=== PATIENT | male | born 1925 | race Caucasian/White ===

== ENCOUNTER 2016-10-12 12:33 | Inpatient (IN) | payer MEDICARE ==
[~2016-10-12] VITALS: Ht 167.6 cm; Wt 60.6 kg
[2016-10-12] MEDS ORDERED: SODIUM CHLORIDE 0.9% 1,000 ML ONE (14:38)
[2016-10-12] MEDS ORDERED: VANCOMYCIN 1,500 MG in SODIUM CHLORIDE 0.9% 250 ML IV ONE (16:20)
[2016-10-12] MEDS ORDERED: PIPERACIL/TAZO 4.5GM/100ML 100 ML IV ONE (16:20)
[2016-10-12] MEDS ORDERED: ONDANSETRON 4 MG VIAL IV PRN (16:40)
[2016-10-12] MEDS ORDERED: SALINE FLUSH 10 ML FLUSH PRN (16:40)
[2016-10-12] MEDS ORDERED: PHARMACY TO DOSE CEFEPIME IV SCH (16:40)
[2016-10-12] MEDS ORDERED: MAG HYDROX 30 ML UDC PO PRN (16:40)
[2016-10-12] MEDS ORDERED: ACETAMINOPHEN 325 MG TAB PO PRN (16:40)
[2016-10-12] MEDS ORDERED: BISACODYL 10 MG SUPP RECTAL PRN (16:40)
[2016-10-12] MEDS: ENOXAPARIN 40 MG/0.4 ML SYR SUBQ SCH (16:40)
[2016-10-12] MEDS ORDERED: PHARMACY TO DOSE VANCOMYCIN IV SCH (16:40)
[2016-10-12] MEDS: NAMENDA PO SCH (17:20)
[2016-10-12 19:38] VITALS: BP_SYST 150; RESP 20; TEMP 98.2; Ht 167.6 cm; Wt 60.6 kg
[2016-10-12] MEDS: SALINE FLUSH 10 ML FLUSH SCH (20:00)
[2016-10-12] MEDS: MEMANTINE XX SCH (20:00)
[2016-10-12] MEDS: [UNRECOGNIZED DRUG - OTHER] XX SCH (20:00)
[2016-10-12] MEDS: TAMSULOSIN 0.4 MG CAP PO SCH (20:16)
[2016-10-12] MEDS: FOLIC ACID 1 MG TAB PO SCH (20:16)
[2016-10-12] MEDS: NEB-BUDESONIDE 0.5 MG INH SCH (22:36)
[2016-10-12] MEDS: NEB-BROVANA 15 MCG/2 ML INH SCH (22:36)
[2016-10-12] MEDS: DUONEB INH SCH (22:36)
[2016-10-12 22:37] VITALS: RESP 18
[2016-10-12] MEDS: CEFEPIME 2000 MG/100 ML D5W 100 ML IV SCH (23:05)
[2016-10-12] MEDS: SODIUM CHLORIDE 0.9% 1,000 ML IV SCH (23:05)
[2016-10-12] MEDS: SODIUM CHLORIDE 0.9% FLUSH BAG 500 ML IV SCH (23:13)
[2016-10-12 23:38] VITALS: BP_SYST 100; RESP 20; TEMP 97.2
[2016-10-13] VITALS (8 sets, daily range): BP systolic 90–114; RESP 16–20; TEMP 97.3–98.3
[2016-10-13] MEDS: NEB-BROVANA 15 MCG/2 ML INH SCH ×2 (06:33→18:22)
[2016-10-13] MEDS: NEB-BUDESONIDE 0.5 MG INH SCH ×2 (06:33→18:22)
[2016-10-13] MEDS: DUONEB INH SCH ×3 (06:33→18:22)
[2016-10-13] MEDS: SALINE FLUSH 10 ML FLUSH SCH ×2 (08:00→20:22)
[2016-10-13] MEDS: [UNRECOGNIZED DRUG - OTHER] XX SCH ×2 (08:00→20:00)
[2016-10-13] MEDS: MEMANTINE XX SCH ×2 (08:00→20:00)
[2016-10-13] MEDS: SODIUM CHLORIDE 0.9% 1,000 ML IV SCH (08:23)
[2016-10-13] MEDS ORDERED: MISSING DOSE XX ONE ×2 (08:25→09:20)
[2016-10-13] MEDS: NAMENDA PO SCH (09:00)
[2016-10-13] MEDS: CEFEPIME 2000 MG/100 ML D5W 100 ML IV SCH ×2 (09:43→20:22)
[2016-10-13] MEDS: FOLIC ACID 1 MG TAB PO SCH (09:44)
[2016-10-13] MEDS: TAMSULOSIN 0.4 MG CAP PO SCH (09:44)
[2016-10-13] MEDS: LEVOTHYROXINE 0.175 MG TAB PO SCH (09:44)
[2016-10-13] MEDS: ENOXAPARIN 40 MG/0.4 ML SYR SUBQ SCH (09:45)
[2016-10-13] MEDS ORDERED: MAGNEVIST 15ML IV ONE (11:46)
[2016-10-13] MEDS: DAKIN'S 0.125% 480 ML TOPICAL SCH ×2 (13:05→20:23)
[2016-10-13] MEDS ORDERED: SODIUM CHLORIDE 0.9% 1,000 ML IV SCH (18:30)
[2016-10-13] MEDS: VANCOMYCIN 1,000 MG in SODIUM CHLORIDE 0.9% 250 ML IV SCH (18:32)
[2016-10-14] VITALS (12 sets, daily range): BP systolic 90–115; RESP 16–20; TEMP 97.3–98.5
[2016-10-14] MEDS: SODIUM CHLORIDE 0.9% FLUSH BAG 500 ML IV SCH ×2 (04:54→19:27)
[2016-10-14] MEDS: NEB-BROVANA 15 MCG/2 ML INH SCH ×2 (06:49→19:49)
[2016-10-14] MEDS: NEB-BUDESONIDE 0.5 MG INH SCH ×2 (06:49→19:49)
[2016-10-14] MEDS: DUONEB INH SCH ×3 (06:49→19:49)
[2016-10-14] MEDS: LEVOTHYROXINE 0.175 MG TAB PO SCH (06:51)
[2016-10-14] MEDS: CEFEPIME 2000 MG/100 ML D5W 100 ML IV SCH ×2 (08:10→22:06)
[2016-10-14] MEDS: SALINE FLUSH 10 ML FLUSH SCH ×2 (08:10→20:00)
[2016-10-14] MEDS: FOLIC ACID 1 MG TAB PO SCH (08:11)
[2016-10-14] MEDS: TAMSULOSIN 0.4 MG CAP PO SCH (08:11)
[2016-10-14] MEDS: ENOXAPARIN 40 MG/0.4 ML SYR SUBQ SCH (08:12)
[2016-10-14] MEDS ORDERED: *PINK BRACELET XX ONE (10:50)
[2016-10-14] MEDS: NAMENDA PO SCH (10:51)
[2016-10-14] MEDS: DAKIN'S 0.125% 480 ML TOPICAL SCH (14:48)
[2016-10-14] MEDS: VANCOMYCIN 1,000 MG in SODIUM CHLORIDE 0.9% 250 ML IV SCH (19:27)
[2016-10-14] MEDS: *HOME MEDS IN MED CART XX SCH (20:00)
[2016-10-15] MEDS: DAKIN'S 0.125% 480 ML TOPICAL SCH ×3 (00:03→21:54)
[2016-10-15 03:28] VITALS: BP_SYST 105; RESP 20; TEMP 98.1
[2016-10-15] MEDS: LEVOTHYROXINE 0.175 MG TAB PO SCH (05:55)
[2016-10-15] MEDS: SODIUM CHLORIDE 0.9% FLUSH BAG 500 ML IV SCH (05:55)
[2016-10-15] MEDS: NEB-BUDESONIDE 0.5 MG INH SCH ×2 (06:16→18:11)
[2016-10-15] MEDS: DUONEB INH SCH ×3 (06:16→18:11)
[2016-10-15] MEDS: NEB-BROVANA 15 MCG/2 ML INH SCH ×2 (06:16→18:11)
[2016-10-15 07:18] VITALS: BP_SYST 107; RESP 20; TEMP 98.7
[2016-10-15] MEDS ORDERED: KCL 20 MEQ/15 ML UDC PO ONE (08:45)
[2016-10-15] MEDS: SALINE FLUSH 10 ML FLUSH SCH ×2 (09:20→21:53)
[2016-10-15] MEDS: CEFEPIME 2000 MG/100 ML D5W 100 ML IV SCH (09:21)
[2016-10-15] MEDS: NAMENDA PO SCH (09:21)
[2016-10-15] MEDS: FOLIC ACID 1 MG TAB PO SCH (09:21)
[2016-10-15] MEDS: TAMSULOSIN 0.4 MG CAP PO SCH (09:21)
[2016-10-15] MEDS: ENOXAPARIN 40 MG/0.4 ML SYR SUBQ SCH (09:22)
[2016-10-15 11:00] VITALS: BP_SYST 138; RESP 20; TEMP 97.6
[2016-10-15 15:35] VITALS: BP_SYST 102; RESP 20; TEMP 98.1
[2016-10-15] MEDS ORDERED: VANCOMYCIN 1,500 MG in SODIUM CHLORIDE 0.9% 250 ML IV SCH (19:00)
[2016-10-15 19:36] VITALS: BP_SYST 100; RESP 18; TEMP 98.6
[2016-10-15] MEDS: *HOME MEDS IN MED CART XX SCH ×2 (20:00→21:52)
[2016-10-16 00:16] VITALS: BP_SYST 104; RESP 16; TEMP 98.2
[2016-10-16] MEDS: SODIUM CHLORIDE 0.9% FLUSH BAG 500 ML IV SCH ×2 (06:00→06:13)
[2016-10-16] MEDS: LEVOTHYROXINE 0.175 MG TAB PO SCH (06:13)
[2016-10-16] MEDS: DUONEB INH SCH ×2 (06:43→11:33)
[2016-10-16] MEDS: NEB-BROVANA 15 MCG/2 ML INH SCH (06:43)
[2016-10-16] MEDS: NEB-BUDESONIDE 0.5 MG INH SCH (06:43)
[2016-10-16] MEDS: *HOME MEDS IN MED CART XX SCH (07:08)
[2016-10-16 08:14] VITALS: BP_SYST 98; RESP 18; TEMP 97.2
[2016-10-16] MEDS: NAMENDA PO SCH (08:48)
[2016-10-16] MEDS: SALINE FLUSH 10 ML FLUSH SCH (08:48)
[2016-10-16] MEDS: FOLIC ACID 1 MG TAB PO SCH (08:48)
[2016-10-16] MEDS: TAMSULOSIN 0.4 MG CAP PO SCH (08:48)
[2016-10-16] MEDS: DAKIN'S 0.125% 480 ML TOPICAL SCH (08:49)
[2016-10-16] MEDS: ENOXAPARIN 40 MG/0.4 ML SYR SUBQ SCH (08:49)
[2016-10-16 10:47] VITALS: BP_SYST 90; RESP 20; TEMP 97.5
[2016-10-16 15:37] VITALS: BP_SYST 90; RESP 20; TEMP 97.5
[2016-10-16] MEDS ORDERED: VANCOMYCIN 1,250 MG in SODIUM CHLORIDE 0.9% 250 ML IV SCH (19:00)
== END 2016-10-16 17:31 | DRG 463 ==
LOC: ENRESERVTM → ENRESERVDT → ER 12:33 → ENPENDDIS 16:40 → EMR 16:40 → 3NT 20:08
PROVIDERS: ADMIT Internal Medicine; ATTEND Internal Medicine
PROC: 0JBR0ZZ Excision of Left Foot Subcutaneous Tissue and Fascia, Open Approach (ICD-10-PCS; principal; 2016-10-13)
PROC: 02HV33Z Insertion of Infusion Device into Superior Vena Cava, Percutaneous Approach (ICD-10-PCS; 2016-10-14)
DX: M86.8X7 Other osteomyelitis, ankle and foot (principal); L89.624 Pressure ulcer of left heel, stage 4; E87.2 Acidosis; J44.9 Chronic obstructive pulmonary disease, unspecified; L89.893 Pressure ulcer of other site, stage 3; F03.90 Unspecified dementia, unspecified severity, without behavioral disturbance, psychotic disturbance, mood disturbance, and anxiety; B35.1 Tinea unguium; B95.2 Enterococcus as the cause of diseases classified elsewhere; L60.0 Ingrowing nail; E03.9 Hypothyroidism, unspecified; N40.0 Benign prostatic hyperplasia without lower urinary tract symptoms; E78.5 Hyperlipidemia, unspecified; Z86.73 Personal history of transient ischemic attack (TIA), and cerebral infarction without residual deficits
CPT/HCPCS: 36415; 36569; 70450; 71010; 73720; 76937; 80048; 80053; 80202; 81003; 83605; 83735; 84439; 84443; 85025; 85610; 85652; 85730; 87040; 87071; 87077; 87186; 93005; 94640; 94799; 96361; 96365; 96366; 99223; 99232; 99239